=== PATIENT | female | born 1985 | race Hispanic/Latino ===

== ENCOUNTER → 2018-05-23 | Outpatient (CLI) | payer OTHER ==
[~2018-05-23] MED LIST: LISINOPRIL-HCT1 EAC2
[2018-05-23 12:25] LABS: BASOPHILS % 0.4 % (0.0-1.0); EOSINOPHILS # (AUTO) 0.5 (0.0-0.4); EOSINOPHILS % 6.2 % (0.0-6.0); HEMATOCRIT 38.9 % (34.2-44.1); HEMOGLOBIN 13.3 g/dL (12.0-16.0); LYMPHOCYTES # (AUTO) 2.5 (1.0-3.2); LYMPHOCYTES % 34.3 % (18.0-39.1); MEAN CORPUSCULAR HEMOGLOBIN 30.4 pg (28-32); MEAN CORPUSCULAR HGB CONC 34.2 g/dL (31-35); MEAN CORPUSCULAR VOLUME 88.8 fL (81-99); MONOCYTES # (AUTO) 0.4 (0.2-0.8); MONOCYTES % 5.5 % (4.4-11.3); NEUTROPHILS # (AUTO) 3.8 (2.1-6.9); NEUTROPHILS % 53.3 % (38.7-80.0); PLATELET COUNT 243 x10e3/uL (140-360); RED BLOOD COUNT 4.38 x10e6/uL (3.6-5.1); RED CELL DISTRIBUTION WIDTH 12.9 % (11.7-14.4)
[2018-05-23 12:43] LABS: ANION GAP 11.1 mmol/L (8-16); BLOOD UREA NITROGEN 11 mg/dL (7-26); BUN/CREATININE RATIO 15 (6-25); CALCIUM 9.3 mg/dL (8.4-10.2); CARBON DIOXIDE 26 mmol/L (22-29); CHLORIDE 106 mmol/L (98-107); CREATININE, SERUM 0.73 mg/dL (0.57-1.11); EST GLOMERULAR FILTRATION RATE > 60 ML/MIN (60-); GLUCOSE 91 mg/dL (74-118); POTASSIUM 4.1 mmol/L (3.5-5.1); SODIUM 139 mmol/L (136-145)
== END | disposition home or self-care (01) ==
LOC: RAD 05:00 → OR 05-25 05:16 → EDSTATUS 05-25 07:30
PROVIDERS: ATTEND Obstetrics & Gynecology Obstetrics
DX: N93.8 Other specified abnormal uterine and vaginal bleeding (principal); N84.0 Polyp of corpus uteri; Z53.09 Procedure and treatment not carried out because of other contraindication; I10 Essential (primary) hypertension; F41.9 Anxiety disorder, unspecified
CPT/HCPCS: 36415; 80048; 84702; 85025; 93005

== ENCOUNTER → 2018-06-20 | Day surgery (SDC) | payer OTHER ==
[2018-06-16 11:03] LABS: BASOPHILS % 0.5 % (0.0-1.0); EOSINOPHILS # (AUTO) 0.5 (0.0-0.4); EOSINOPHILS % 6.1 % (0.0-6.0); HEMATOCRIT 40.1 % (34.2-44.1); LYMPHOCYTES # (AUTO) 2.8 (1.0-3.2); LYMPHOCYTES % 35.5 % (18.0-39.1); MEAN CORPUSCULAR HEMOGLOBIN 30.3 pg (28-32); MEAN CORPUSCULAR HGB CONC 34.9 g/dL (31-35); MEAN CORPUSCULAR VOLUME 86.8 fL (81-99); MONOCYTES # (AUTO) 0.5 (0.2-0.8); NEUTROPHILS # (AUTO) 4.1 (2.1-6.9); NEUTROPHILS % 51.8 % (38.7-80.0); PLATELET COUNT 282 x10e3/uL (140-360); RED BLOOD COUNT 4.62 x10e6/uL (3.6-5.1); RED CELL DISTRIBUTION WIDTH 12.6 % (11.7-14.4)
[~2018-06-20] MED LIST changes: +DEXAMETHASONE SOD PHOS INJ 4 MG/ML VIAL IV ONE; +FENTANYL CITRATE/PF 100MCG/2 ML INJ ONE; +LIDOCAINE HCL 2% LOCAL INJ 5 ML SDV VIAL INJ ONE; +METRONIDAZOLE 500MG/NS 100ML 100 ML IV ONE; +MIDAZOLAM HCL 2 MG/2 ML VIAL ONE; +ONDANSETRON HCL INJ 2 MG/ML VIAL IV ONE; +PROPOFOL IV EMULSION 10 MG/ML 20 ML VIAL IV ONE; +SEVOFLURANE INHAL SOLN 250 ML PEN BTL INH ONE; +SILVER NITRATE SWABS ONE
--- NOTE | 2018-06-22 13:14 | Operative Report ---
DATE OF PROCEDURE: June 20, 2018 PREOPERATIVE DIAGNOSIS: Abnormal uterine bleeding uncontrolled by medical management, desiring definitive surgical management. POSTOPERATIVE DIAGNOSIS: Abnormal uterine bleeding uncontrolled by medical management, desiring definitive surgical management. OPERATIONS PERFORMED: 1. Dilatation and curettage. 2. Hysteroscopy with hysteroscopic polypectomy. 3. Endometrial ablation using the Aaliyah system. PANEL SEWER: None. ANESTHESIA: General. ESTIMATED BLOOD LOSS: Minimal. COMPLICATIONS: None. FINDINGS: A normal bimanual exam with anteverted uterus, no adnexal masses palpable. Hysteroscopic findings included a small endometrial polyp, no other abnormal structures identified, normal tubal ostia bilaterally. The uterus was sounded to 8 cm with a 4 cm cervix. SPECIMENS: Included endometrial curettings with polyp. INDICATIONS: The patient is a 32-year-old female with abnormal uterine bleeding uncontrolled by medical management. She has had a previous tubal ligation and does not desire future childbearing. PROCEDURE: The patient was taken to the operating room where she underwent general anesthesia. She was prepped and draped in the typical sterile fashion in the dorsal lithotomy position with candy cane stirrups. After bimanual examination, the cervix was exposed and a weighted vaginal speculum was placed. The anterior lip of the cervix was then grasped with a single-toothed tenaculum. The uterus and cervix were sounded with the findings noted above. The endocervical canal was then progressively dilated with a Hegar dilator to a number 18. The hysteroscope was then introduced into the uterine cavity using sterile saline solution as a distending media. The uterine cavity was explored with findings noted above. The TRUCLEAR device was then used to morcellate and remove the polyp under direct visualization. A sharp curettage was then performed, and all curettings were sent for pathology. A survey of the uterine cavity then revealed a normal-appearing and intact cavity. The Aaliyah device was then opened. The instrument was set to the correct cavity length and introduced into the uterine cavity. The fin was slowly deployed with gentle movements to ensure a snug fit within the cavity, and the cervical balloon was inflated. A cavity integrity check was done and was normal. The device was activated and performed the full 120 second ablation cycle. The device was then retracted and removed. The tenaculum was removed and the cervix examined for hemostasis, which was achieved. Finally, the weighted speculum was removed. The patient tolerated the procedure well and was brought to the recovery room in stable condition. At the end of the procedure all sponge, lap, instrument and needle counts were correct x2. The blood loss was minimal, and there were no complications. Job#: [id number]
== END | disposition home or self-care (01) ==
LOC: OR 10:18
PROVIDERS: ATTEND Obstetrics & Gynecology Obstetrics
DX: N84.0 Polyp of corpus uteri (principal); I10 Essential (primary) hypertension; F41.9 Anxiety disorder, unspecified; Z01.812 Encounter for preprocedural laboratory examination
CPT/HCPCS: 36415; 58563; 84702; 85025; 88305; J1100; J2001; J2250; J2405